=== PATIENT | female | born 1965 | race Caucasian/White ===

== ENCOUNTER 2021-01-21 18:15 | Emergency (ER) | payer OTHER, SELFPAY ==
--- NOTE | ~2021-01-21 | XR_ITS ---
XR knee LT 3V 01/21/2021 18:44 INDICATION: Left knee pain PROCEDURE: 3 views left knee COMPARISON: 04/05/2011 FINDINGS: Fracture, dislocation or subluxation is not identified. No significant joint effusion. The soft tissues appear within normal limits. No foreign bodies are identified. IMPRESSION: 1: NO ACUTE BONE OR JOINT ABNORMALITY IDENTIFIED. Reviewed, dictated and finalized at location A.
[2021-01-21 18:28] VITALS: BP 134/78; PULSE 97; RESP 18; TEMP 36.9; O2SAT 99
--- NOTE | 2021-01-21 18:44 | ED.GENADULT ---
HPI - General Adult General Chief complaint: Extremity Injury, Lower Stated complaint: left knee pain Time Seen by Provider: 01/21/21 18:35 Source: patient and RN notes reviewed Mode of arrival: ambulatory Limitations: no limitations History of Present Illness HPI narrative: 55-year-old female presents with complaints of left anterior knee pain and swelling for the past 3 hours. ?Emilia reports walking at work when right foot was caught by a chair and threw her forward landing on left knee. ?Ice to the left knee and Tylenol last at approximately 18:15 with some relief. ?No radiation of pain. ?No numbness or tingling, or bleeding. ?No loss of mobility. ?Exacerbating factor consists of bearing weight and bending the knee. ?No fever. ?Remains active. ?The patient reports she was diagnosed with COVID-19 in June 2020. ?The patient reports she received 2 Pfizer COVID-19 vaccines. ?The patient reports she is not waiting for the results of a COVID-19 lab test. ?The patient reports she does not have chills, weakness, or fatigue. ?The patient reports she does not have a new or worsening cough or shortness of breath. ?Denies chest pain. ?The patient reports she does not have any rhinorrhea, congestion, sore throat, loss of taste or smell, nausea, vomiting, abdominal pain, and diarrhea. ?Tolerating po intake well. ?Denies recent traveling. ?Denies concerns for COVID-19 or exposures. ?At this time, the patient is not suspected of having COVID-19. Some parts of this dictation were generated by voice recognition software and may contain typographical and/or grammatical inaccuracies. Related Data Allergies Allergy/AdvReac Type Severity Reaction Status Date / Time Penicillins Allergy Unknown Unknown Verified 07/30/18 13:50 SULFAMETHOXAZOLE (Generic Allergy Unknown Rash Uncoded 07/30/18 13:50 Allergy) Review of Systems Review of Systems: Narrative: CONSTITUTIONAL: Denies fever, chills, sweats. EYES: Denies visual changes, redness, discharge. ENT: Denies rhinorrhea, congestion, sore throat, otalgia. CARDIOVASCULAR: Denies chest pain, palpitations, edema. RESPIRATORY: Denies dyspnea, wheezing, cough. GASTROINTESTINAL: Denies abdominal pain, nausea, vomiting, diarrhea. SKIN: Denies rash or itching. MUSCULOSKELETAL: Denies acute back pain or myalgia. Complaints of Left left anterior knee pain and swelling. NEUROLOGIC: Denies numbness or focal weakness. PSYCHIATRIC: Denies anxiety or depression. All other systems reviewed & are unremarkable except as noted in HPI and below. [facility] Past Medical History Medical History (Updated 01/22/21 @ 00:00 by Elizabeth Randolph) Anxiety delivery delivered Surgical History Surgical History (Updated 01/21/21 @ 18:59 by CAROLE Carrasco) H/O section X2 History of hysterectomy Family History Family History (Updated 01/21/21 @ 19:00 by CAROLE Carrasco) Father Carcinoma of colon Diabetes mellitus Mother Dementia Social History Social History (Updated 01/21/21 @ 19:01 by CAROLE Carrasco) Smoking status: Former smoker Tobacco type: cigarettes Second hand tobacco smoke exposure: No Smoking end date: 07/18/00 Alcohol intake: current Substance use: never Substance use type: does not use Living arrangements: with family Occupation/Education: occupation Gender identity (if verbalized by the patient): Female Sexual Orientation (if Verbalized by the Patient): Straight or Heterosexual Comments At time of signature, agree with the nurse past medical, surgical, social, and family history. There is no relevant family history pertinent to the presenting complaint. Exam Narrative: Exam Narrative: GENERAL: This is a well-nourished, well-developed patient, in no apparent distress. Talks in full sentences and ambulates with LT antalgic gait without dyspnea. HEAD: Normocephalic, atraumatic. EYES: PERRL. Sclera clear/white. Vision is grossl
== END 2021-01-21 19:15 | disposition home or self-care (01) ==
PROVIDERS: Emergency Provider Nurse Practitioner Family; PCP Physician Assistant
DX: S83.92XA Sprain of unspecified site of left knee, initial encounter (principal); S80.02XA Contusion of left knee, initial encounter; W01.190A Fall on same level from slipping, tripping and stumbling with subsequent striking against furniture, initial encounter; Z87.891 Personal history of nicotine dependence
CPT/HCPCS: 73562; 99213; G0463

== ENCOUNTER → 2023-01-24 11:06 | Outpatient (CLI) | payer OTHER, SELFPAY ==
--- NOTE | ~2023-01-24 | XR_ITS ---
Left Hand Technique: PA and lateral views were obtained. Clinical History: Abnormal immunological findings in serum Findings: No acute fracture or dislocation is seen. Osseous alignment is anatomic. Joint spaces are p reserved. Soft tissues are unremarkable. Impression: Unremarkable left hand. Reviewed, dictated and finalized at location . Impression: Unremarkable left hand.
--- NOTE | ~2023-01-24 | XR_ITS ---
Right Hand Technique: PA and lateral views were obtained. Clinical History: Abnormal immunological findings and serum Findings: No acute fracture or dislocation is seen. Osseous alignment is anatomic. Joint spaces are p reserved. Soft tissues are unremarkable. Impression: Unremarkable right hand. Reviewed, dictated and finalized at location M. Impression: Unremarkable right hand.
--- NOTE | ~2023-01-24 | XR_ITS ---
Lumbosacral Spine: AP and lateral views Clinical History: Abnormal immunological findings in serum Findings: The normal lordotic curve is maintained. The vertebral bodies and posterior elements are i ntact. The intervertebral disc spaces are preserved. There is moderate facet arthropathy at L4-L5 an d L5-S1. The sacroiliac joints are normally outlined. Impression: Moderate facet arthropathy L4-L5 and L5-S1. Reviewed, dictated and finalized at location . Impression: Moderate facet arthropathy L4-L5 and L5-S1.
--- NOTE | ~2023-01-24 | XR_ITS ---
AP and oblique views of the bilateral SI joints CLINICAL HISTORY: Abnormal immunological findings in serum FINDINGS: SI joints and visualized hip joints are unremarkable. No degenerative change. No erosive or sclerotic change. Soft tissues are unremarkable. IMPRESSION: No significant abnormality seen. Reviewed, dictated and finalized at location .
== END ==
PROVIDERS: PCP Physician Assistant Medical; Visit Provider Physician Assistant Medical
DX: R76.8 Other specified abnormal immunological findings in serum (principal); R53.83 Other fatigue; M25.50 Pain in unspecified joint; H04.123 Dry eye syndrome of bilateral lacrimal glands
CPT/HCPCS: 72100; 72202; 73120